=== PATIENT | female | born 2000 | race American Indian/Alaskan Native ===

== ENCOUNTER 2020-08-16 06:56 | Emergency (ER) | payer MEDICAID ==
--- NOTE | 2020-08-16 07:55 | Emergency Department Report ---
Blank Doc - Documentation Documentation: 20-year-old female that presents with dysuria, vaginal discharge, and pelvic p ain. Stated is concerned about STD. This initial assessment/diagnostic orders/clinical plan/treatment(s) is/are subject to change based on patient's health status, clinical progression and re-assessment by fellow clinical providers in the ED. Further treatment and workup at subsequent clinical providers discretion. Patient/guardians urged not to elope from the ED as their condition may be serious if not clinically assessed and managed. Initial orders include: 1- Patient sent to [facility] for further evaluation and treatment 2- pelvic exam to be done 3- UA
--- NOTE | 2020-08-16 09:15 | Emergency Department Report ---
HPI - General Chief Complaint: Urogenital-Female Time Seen by Provider: 08/16/20 07:53 - [facility] HPI: Room 35 The patient is a 20-year-old female present with a chief complaint of STD exposure. The patient states she was told by significant other that she was exposed to trichomonas and should be treated. The patient states for approximate 1 week she has had dysuria and white vaginal discharge. ED Past Medical Hx - Past Medical History Previous Medical History?: No - Surgical History Past Surgical History?: No - Family History Family history: no significant - Social History Smoking Status: Current Every Day Smoker Substance Use Type: Alcohol (Occasional), Marijuana - Medications Home Medications: Home Medications Medication Instructions Recorded Confirmed Last Taken Type Doxycycline Monohydrate 100 mg PO BID #14 capsule 08/16/20 Unknown Rx [Doxycycline Monohydrate CAP] Fluconazole (Nf) [Diflucan TAB] 150 mg PO ONCE #1 tablet 08/16/20 Unknown Rx metroNIDAZOLE [Flagyl] 500 mg PO Q12HR #14 tab 08/16/20 Unknown Rx ED Review of Systems ROS: Stated complaint: STD CHECK Other details as noted in HPI Constitutional: no symptoms reported Eyes: denies: eye pain ENT: denies: throat pain Respiratory: no symptoms reported Cardiovascular: denies: chest pain Endocrine: no symptoms reported Genitourinary: dysuria, discharge Musculoskeletal: denies: back pain Neurological: denies: headache Physical Exam - Physical Exam Vital Signs: Vital Signs 08/16/20 07:06 Temperature 98.4 F Pulse Rate 78 Respiratory 16 Rate Blood Pressure 143/78 [Right] O2 Sat by Pulse 98 Oximetry Physical Exam: GENERAL: The patient is well-developed well-nourished female lying on stretcher not appearing to be in acute distress. [] HEENT: Normocephalic. Atraumatic. Extraocular motions are intact. Patient has moist mucous membranes. NECK: Supple. Trachea midline CHEST/LUNGS: Clear to auscultation. There is no respiratory distress noted. HEART/CARDIOVASCULAR: Regular. There is no tachycardia. There is no gallop rub or murmur. ABDOMEN: Abdomen is soft, nontender. Patient has normal bowel sounds. There is no abdominal distention. SKIN: There is no rash. There is no edema. There is no diaphoresis. NEURO: The patient is awake, alert, and oriented. The patient is cooperative. The patient has normal speech MUSCULOSKELETAL: There is no evidence of acute injury. PELVIC: ED Course Vital Signs 08/16/20 07:06 Temperature 98.4 F Pulse Rate 78 Respiratory 16 Rate Blood Pressure 143/78 [Right] O2 Sat by Pulse 98 Oximetry ED Medical Decision Making - Lab Data Laboratory Tests 08/16/20 09:25 Urine Color Tarah Urine Turbidity Clear Urine pH 6.0 Ur Specific Backus 1.027 Urine Protein >500 Urine Glucose (UA) Neg Urine Ketones Neg Urine Blood Neg Urine Nitrite Neg Ur Reducing Substances Not Reportable Urine Bilirubin Neg Urine Ictotest Not Reportable Urine Urobilinogen 4.0 Ur Leukocyte Esterase Sm Urine WBC (Auto) 8.0 H Urine RBC (Auto) 11.0 U Epithel Cells (Auto) 13.0 Urine Mucus 2+ Urine HCG, Qual Negative Wet prep-greater than 20% clue cells - Differential Diagnosis Trichomonas vaginalis, urethritis, bacterial vaginosis, gonorrhea chlamydia Critical care attestation.: If time is entered above; I have spent that time in minutes in the direct care of this critically ill patient, excluding procedure time. ED Disposition Clinical Impression: Urethritis, STD exposure Disposition: DC-01 TO HOME OR SELFCARE Is pt being admited?: No Does the pt Need Aspirin: No Condition: Stable Additional Instructions: Return to the emergency department should you develop worsening symptoms, inability to tolerate food or liquids, high fever or any other concerns Prescriptions: Fluconazole (Nf) [Diflucan TAB] 150 mg PO ONCE #1 tablet Doxycycline Monohydrate [Doxycycline Monohydrate CAP] 100 mg PO BID #14 capsule metroNIDAZOLE [Flagyl] 500 mg PO Q12HR #14 tab Referrals: PRIMARY CAREMD [Primary Care Provider] - 3-5 Days [facility] [Provider Group] - 3-5 Days Forms: STI Treatment and Prevention Time of Disposition: 11:50
[2020-08-16 10:26] LABS: HCG Qualitative,Urine Negative (Negative)
[2020-08-16 10:29] LABS: Bilirubin,Urine NEG (Negative); Blood,Urine NEG (Negative); Color,Urine Amber (Yellow); Mucus,Urine 2+ /HPF; Protein,Urine >500 mg/dL (Negative)
[2020-08-16] MEDS ORDERED: LIDOCAINE-MPF (1%) 10 MG/1 ML VIAL 5 ML INFILTRATI ONE (11:07)
[2020-08-16 11:56] VITALS: BP 130/77
== END 2020-08-16 11:59 | disposition home or self-care (01) ==
LOC: ED 06:56
DX: N34.2 Other urethritis (principal); F17.200 Nicotine dependence, unspecified, uncomplicated; F12.90 Cannabis use, unspecified, uncomplicated; Z20.2 Contact with and (suspected) exposure to infections with a predominantly sexual mode of transmission; Z79.899 Other long term (current) drug therapy
CPT/HCPCS: 81001; 81025; 87210; 87591; 96372; 99283; J0696

== ENCOUNTER 2020-09-14 00:47 | Emergency (ER) | payer MEDICAID ==
--- NOTE | 2020-09-14 00:51 | Emergency Department Report ---
Blank Doc - Documentation Documentation: 20-year-old female that presents with generalized body aches and joint swelling. Patient did not has history of lupus. 1- This initial assessment/diagnostic orders/clinical plan/ treatment(s) is/are subject to change based on pt's health status, clinical progression and re-as sessment by fellow clinical providers in the ED. Further treatment and workup at subsequent clinical provers discretion. Patient/guardians urged not to elope from ED as their condition may be serious if not clinically assessed and managed. 2-labs 3-UA
[2020-09-14 01:18] LABS: Basophils % (Auto) 0.2 % (0.0-1.8); Eosinophils % (Auto) 0.2 % (0.0-4.3); Hematocrit 36.9 % (30.3-42.9); Hemoglobin 12.2 gm/dl (10.1-14.3); Lymphocytes # (Auto) 1.2 K/mm3 (1.2-5.4); Lymphocytes % (Auto) 19.1 % (13.4-35.0); Mean Corpuscular HGB Conc 33 % (30-34); Mean Corpuscular Volume 82 fl (79-97); Monocytes # (Auto) 0.6 K/mm3 (0.0-0.8); Monocytes % (Auto) 9.7 % (0.0-7.3); Platelet Count 354 K/mm3 (140-440); Red Blood Count 4.52 M/mm3 (3.65-5.03); Red Cell Distribution Width 16.9 % (13.2-15.2)
[2020-09-14 01:39] LABS: Alanine Aminotransferase 11 units/L (7-56); Blood Urea Nitrogen 13 mg/dL (7-17); Calcium 9.1 mg/dL (8.4-10.2); Hemolysis Index 0
[2020-09-14 01:40] LABS: BUN/Creatinine Ratio 19
[2020-09-14 02:59] LABS: Bilirubin,Urine NEG (Negative); Blood,Urine NEG (Negative); Color,Urine Amber (Yellow); Hyaline Casts,Urine 2 /LPF; Mucus,Urine 3+ /HPF
[2020-09-14 03:03] LABS: HCG Qualitative,Urine Positive (Negative); Protein,Urine >500 mg/dL (Negative)
--- NOTE | 2020-09-14 03:45 | Emergency Department Report ---
HPI - General Chief Complaint: Pain General Time Seen by Provider: 09/14/20 00:49 - HPI HPI: Room 42 The patient is a 20-year-old female present with a chief complaint of lupus flare. The patient states since yesterday she has had pain and swelling in her joints including bilateral hands, bilateral knees and bilateral ankles. Patient complains of pain in the middle of her pelvis and the bottom of her feet. Patient states it feels like a lupus flare. Patient denies history of fever or cough. Patient denies abdominal pain. ED Past Medical Hx - Past Medical History Previous Medical History?: Yes Additional medical history: Lupus, lupus nephritis - Surgical History Past Surgical History?: No - Family History Family history: no significant - Social History Smoking Status: Never Smoker Substance Use Type: None (Denies illicit drug use), Alcohol (Occasional) - Medications Home Medications: Home Medications Medication Instructions Recorded Confirmed Last Taken Type Doxycycline Monohydrate 100 mg PO BID #14 capsule 08/16/20 Unknown Rx [Doxycycline Monohydrate CAP] Fluconazole (Nf) [Diflucan TAB] 150 mg PO ONCE #1 tablet 08/16/20 Unknown Rx metroNIDAZOLE [Flagyl] 500 mg PO Q12HR #14 tab 08/16/20 Unknown Rx Fluconazole (Nf) [Diflucan TAB] 150 mg PO ONCE #1 tablet 09/14/20 Unknown Rx HYDROcodone/APAP 5-325 [[place] 1 - 2 each PO Q6HR PRN #14 tablet 09/14/20 Unknown Rx 5/325] Prednisone [predniSONE 10 mg 10 mg PO .TAPER #1 tab.ds.pk 09/14/20 Unknown Rx (6-Day Pack, 21 Tabs)] ED Review of Systems ROS: Stated complaint: LUPUS;JOINT/BACK PAIN; HEADACHE Other details as noted in HPI Constitutional: no symptoms reported. denies: fever Eyes: denies: eye pain ENT: throat pain Respiratory: no symptoms reported Cardiovascular: denies: chest pain Endocrine: no symptoms reported Gastrointestinal: denies: abdominal pain Musculoskeletal: arthralgia Neurological: denies: headache Physical Exam - Physical Exam Vital Signs: Vital Signs 09/14/20 09/14/20 01:04 02:50 Pulse Rate 117 H 88 Respiratory 16 17 Rate Blood Pressure 152/105 Blood Pressure 142/73 [Right] O2 Sat by Pulse 99 100 Oximetry Physical Exam: GENERAL: The patient is well-developed well-nourished female lying on stretcher not appearing to be in acute distress. [] HEENT: Normocephalic. Atraumatic. Extraocular motions are intact. Patient has moist mucous membranes. NECK: Supple. Trachea midline CHEST/LUNGS: Clear to auscultation. There is no respiratory distress noted. HEART/CARDIOVASCULAR: Regular. There is no tachycardia. There is no gallop rub or murmur. ABDOMEN: Abdomen is soft, nontender. Patient has normal bowel sounds. There is no abdominal distention. SKIN: There is no rash. There is no edema. There is no diaphoresis. NEURO: The patient is awake, alert, and oriented. The patient is cooperative. The patient has no focal neurologic deficits. The patient has normal speech MUSCULOSKELETAL: There is no evidence of acute injury. ED Course Vital Signs 09/14/20 09/14/20 01:04 02:50 Pulse Rate 117 H 88 Respiratory 16 17 Rate Blood Pressure 152/105 Blood Pressure 142/73 [Right] O2 Sat by Pulse 99 100 Oximetry ED Medical Decision Making - Lab Data Result diagrams: 09/14/20 01:01 09/14/20 01:01 - Medical Decision Making At time of discharge patient informed me that she was told by her partner that she was exposed to trichomonas and is requesting treatment. - Differential Diagnosis Lupus flare, Critical care attestation.: If time is entered above; I have spent that time in minutes in the direct care of this critically ill patient, excluding procedure time. ED Disposition Clinical Impression: Exacerbation of systemic lupus, Polyarthralgia, Trichomonas exposure Disposition: - TO HOME OR SELFCARE Is pt being admited?: No Does the pt Need Aspirin: No Condition: Stable Instructions: Arthritis, Joint Pain, [id number], Safe Sex Additional Instructions: Return to the emergency department should you develop worsening symptoms, inability to tolerate food or liquids, high fever or any other concerns Prescriptions: Fluconazole (Nf) [Diflucan TAB] 150 mg PO ONCE #1 tablet HYDROcodone/APAP 5-325 [[place] 5/325] 1 - 2 each PO Q6HR PRN #14 tablet PRN Reason: Pain Prednisone [predniSONE 10 mg (6-Day Pack, 21 Tabs)] 10 mg PO .TAPER #1 tab.[id number] Referrals: PRIMARY CARE, [Primary Care Provider] - 3-5 Days Time of Disposition: 04:46
[2020-09-14] MEDS ORDERED: ONDANSETRON 4 MG/2 ML INJ IM ONE (04:34)
[2020-09-14] MEDS ORDERED: methylPREDNISolone Sod Succinate 125 MG/2 ML INJ IM ONE (04:34)
[2020-09-14] MEDS ORDERED: fentaNYL 100 MCG/2 ML INJ IM ONE (04:34)
[2020-09-14] MEDS ORDERED: metroNIDAZOLE 500 MG TAB PO ONE (04:41)
[2020-09-14 05:36] VITALS: BP 144/95
== END 2020-09-14 05:40 | disposition home or self-care (01) ==
LOC: ED 00:47
DX: M25.50 Pain in unspecified joint (principal); M32.8 Other forms of systemic lupus erythematosus; Z20.89 Contact with and (suspected) exposure to other communicable diseases; Z79.899 Other long term (current) drug therapy
CPT/HCPCS: 36415; 80053; 81001; 81025; 84702; 85025; 87086; 96372; 99283; J2405; J2930; J3010